=== PATIENT | female | born 2000 | race Caucasian/White ===

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

== ENCOUNTER 2024-10-22 13:33 | Emergency (ER) | payer OTHER, SELFPAY ==
[2024-10-22 13:46] VITALS: BP 116/75; PULSE 85; RESP 16; TEMP 36.4; O2SAT 100
--- NOTE | 2024-10-22 13:46 | ED.URI ---
HPI - URI/Sore Throat General Chief Complaint: Upper Respiratory Infection Stated Complaint: SORE THROAT/DIZZY/OVERHEATED/SHAKY Source: patient Mode of arrival: ambulatory Limitations: no limitations History of Present Illness HPI Narrative: patient is a 24-year-old female presenting with complaints of upper respiratory infection. Symptoms reported include sore throat, headache, congestion, Hot flashes, intermittent dizziness, congestion. Sx began 1 week ago. Denies exposure to COVID, FLU, STREP, PNA. No tx initiated [employer]. No additional complaints. Related Data Home Medications ?Medication ?Instructions ?Recorded ?Confirmed ?Last Taken ?Type fluoxetine 10 mg capsule mg 10/22/24 Unknown History montelukast 10 mg tablet mg 10/22/24 Unknown History norethindrone 1 mg-ethinyl tablet 10/22/24 Unknown History estradiol 20 mcg (21)-iron 75 mg (7) tablet (06/02 (28)) Allergies Allergy/AdvReac Type Severity Reaction Status Date / Time amoxicillin Allergy Rash Verified 10/22/24 13:51 Review of Systems Review of Systems: CONSTITUTIONAL: Denies body aches, fever, chills. EYES: Denies visual changes, redness, or discharge. ENT: Denies otalgia. CARDIOVASCULAR: Denies chest pain, palpitations, or edema. RESPIRATORY: Denies cough or dyspnea. GASTROINTESTINAL: Denies abdominal pain, nausea, vomiting, or diarrhea. GENITOURINARY: Denies dysuria or hematuria. SKIN: Denies rash, itching, or wounds. MUSCULOSKELETAL: Denies back pain, joint pain, or myalgia. NEUROLOGIC: Denies numbness, tingling, or weakness. PSYCH: Denies depression or anxiety. All systems reviewed & are unremarkable except as noted in HPI and below PMFSH Family History Family History Other Family history non-contributory Exam Narrative: GENERAL: Well-appearing, well-nourished, and in no acute distress. HEAD: Normocephalic, atraumatic. EYES: EOMI. No redness or drainage. Conjunctivae normal. ENT: Mucous membranes pink and moist. Nares clear. No rhinorrhea. TMs normal bilaterally. Throat normal. Uvula midline. There is no trismus. There is no evidence of Maik angina. Tonsils are 2+ bilaterally, there is mild erythema. NECK: Normal AROM. Supple. No lymphadenopathy. CHEST: No respiratory distress. Clear to auscultation. HEART: Regular rate and rhythm. No murmur appreciated. Normal peripheral pulses. ABDOMEN: Soft, nontender, nondistended, normal active bowel sounds. MUSCULOSKELETAL: No bony tenderness. EXTREMITIES: Normal range of motion. No edema. SKIN: Warm, dry, no rash. Capillary refill normal. Normal skin turgor. NEURO: No focal deficits. Alert and oriented x3. Gait steady. PSYCH: Normal affect. No signs of depression or anxiety. Course Course Emergency Course: Please be advised this is a medical document. It is intended for [id number] communication. It is written in medical language and may contain unfamiliar abbreviations or verbiage. Medical documents are intended to carry relevant information, facts as evident, and the clinical opinion of the practitioner at the time of the encounter. This dictation may have been done utilizing a voice recognition system. Attempts have been made to correct errors. However, there may be uncorrected grammatical, spelling, and recognition errors present. Level of Care: Express Care Visit Vital Signs Vital signs: Vital Signs Temperature 97.5 F L 10/22/24 13:46 Pulse Rate 85 10/22/24 13:46 Respiratory Rate 16 10/22/24 13:46 Blood Pressure 116/75 10/22/24 13:46 Pulse Oximetry 100 10/22/24 13:46 Temperature 97.5 F L 10/22/24 13:46 Pulse Rate 85 10/22/24 13:46 Respiratory Rate 16 10/22/24 13:46 Blood Pressure 116/75 10/22/24 13:46 Pulse Oximetry 100 10/22/24 13:46 MDM - URI/Sore Throat Differential Diagnosis Differential diagnosis: Likely upper respiratory infection, otitis media, sinusitis, viral infection, influenza and pharyngitis Medical Records Attestation: I reviewed the patient's medical records. Lab Data Attestation: I reviewed the patient's lab results. Labs: Lab Results 10/22/24 10/22/24 Range/Units 14:15 14:21 POC Monoscreen Negative (Negative) POC Grp A Strep Screen Negative (Negative) Discharge Plan Discharge Clinical Impression: Acute upper respiratory infection Patient Disposition: Home Condition: Stable Instructions: Antibiotic Form, Viral Syndrome (ED) Additional Instructions: Go straight to ER should your symptoms become worse or should any new symptoms develop Patient Language: Kitt[place] Prescriptions: New prednisone 20 mg tablet 60 mg PO DAILY Qty: 15 0RF No Action norethindrone-e.estradiol-iron [06/02 (28)] 1 mg-20 mcg (21)/75 mg (7) tablet fluoxetine 10 mg capsule montelukast 10 mg tablet Follow-up/Referrals: Moe,Olimpia [Other] - 10/23/24 Time of Disposition: 14:29
[2024-10-22 14:17] LABS: EDSTREPNEGPOS1 Negative (Negative)
[2024-10-22 14:23] LABS: EDMONONEGPOS Negative (Negative)
== END 2024-10-22 14:40 | disposition home or self-care (01) ==
PROVIDERS: Emergency Provider Registered Nurse
DX: J06.9 Acute upper respiratory infection, unspecified (principal)
CPT/HCPCS: 36416; 86308; 87081; 87880; 99213; G0463

== ENCOUNTER 2025-01-28 13:38 | Emergency (ER) | payer OTHER, SELFPAY ==
[2025-01-28 13:49] VITALS: BP 120/84; PULSE 80; RESP 16; TEMP 36.3; O2SAT 100
--- NOTE | 2025-01-28 13:52 | ED.GENADULT ---
HPI - General Adult General Chief complaint: Upper Respiratory Infection Stated complaint: CONGESTION/COUGH/EAR PRESSURE Source: patient Mode of arrival: ambulatory Limitations: no limitations History of Present Illness HPI narrative: Patient is a 24-year-old female presenting complaint of congestion. Additional symptoms reported include drainage, cough, ear pressure. Symptoms began 1 week ago. 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 Reports the child she nannies has same symptoms and they keep passing it back and forth. No constitutional symptoms. No additional complaints. Related Data Home Medications ?Medication ?Instructions ?Recorded ?Confirmed ?Last Taken ?Type fluoxetine 10 mg capsule 10 mg PO QPM 10/22/24 01/28/25 Unknown History montelukast 10 mg tablet 10 mg PO QPM 10/22/24 01/28/25 Unknown History norethindrone 1 mg-ethinyl 1 tablet PO DAILY 10/22/24 01/28/25 Unknown History estradiol 20 mcg (21)-iron 75 mg (7) tablet (06/02 (28)) Allergies Allergy/AdvReac Type Severity Reaction Status Date / Time amoxicillin Allergy Rash Verified 01/28/25 13:44 Review of Systems Review of Systems: CONSTITUTIONAL: Denies body aches, fever, chills, or sweats. EYES: Denies visual changes, redness, or discharge. ENT: Reports PND, congestion, ear pressure, denies sore throat CARDIOVASCULAR: Denies chest pain, palpitations, or edema. RESPIRATORY: Denies cough or dyspnea. GASTROINTESTINAL: Denies abdominal pain, nausea, vomiting, or diarrhea. GENITOURINARY: Denies dysuria or hematuria. SKIN: Denies rash, itching, or wounds. MUSCULOSKELETAL: Denies back pain, joint pain, or myalgia. NEUROLOGIC: Denies headache, numbness, tingling, or weakness. PSYCH: Denies depression or anxiety. All systems reviewed & are unremarkable except as noted in HPI and below (HPI) [facility] Family History Family History Other Family history non-contributory Exam Narrative: GENERAL: Well-appearing, well-nourished, and in no acute distress. HEAD: Normocephalic, atraumatic. EYES: EOMI. No redness or drainage. Conjunctivae normal. ENT: Mucous membranes pink and moist. Nares clear. No rhinorrhea. TMs normal bilaterally. Throat normal. Uvula midline.Sinuses are NonTTP NECK: Normal AROM. Supple. No lymphadenopathy. CHEST: No respiratory distress. Clear to auscultation. HEART: Regular rate and rhythm. No murmur appreciated. Normal peripheral pulses. EXTREMITIES: Normal range of motion. SKIN: Warm, dry, no rash. Capillary refill normal. Normal skin turgor. NEURO: No focal deficits. Alert and oriented x3. Gait steady. PSYCH: Normal affect. No signs of depression or anxiety. Course Course Level of Care: Express Care Visit Vital Signs Vital signs: Vital Signs Temperature 97.4 F L 01/28/25 13:49 Pulse Rate 80 01/28/25 13:49 Respiratory Rate 16 01/28/25 13:49 Blood Pressure 120/84 01/28/25 13:49 Pulse Oximetry 100 01/28/25 13:49 Temperature 97.4 F L 01/28/25 13:49 Pulse Rate 80 01/28/25 13:49 Respiratory Rate 16 01/28/25 13:49 Blood Pressure 120/84 01/28/25 13:49 Pulse Oximetry 100 01/28/25 13:49 Medical Decision Making Vital Signs Vital Signs: Vital Signs Temperature 97.4 F L 01/28/25 13:49 Pulse Rate 80 01/28/25 13:49 Respiratory Rate 16 01/28/25 13:49 Blood Pressure 120/84 01/28/25 13:49 Pulse Oximetry 100 01/28/25 13:49 Temperature 97.4 F L 01/28/25 13:49 Pulse Rate 80 01/28/25 13:49 Respiratory Rate 16 01/28/25 13:49 Blood Pressure 120/84 01/28/25 13:49 Pulse Oximetry 100 01/28/25 13:49 Lab Data Lab results reviewed: Yes I reviewed the patient's lab results. Labs: Lab Results 01/28/25 Range/Units 14:05 POC Influenza A Ag Negative (Negative) POC Influenza B Ag Negative (Negative) POC SARS CoV-2 Ag Negative (Negative) Discharge Plan Discharge Clinical Impression: Upper respiratory infection Qualifiers: URI type: acute nasopharyngitis (common cold) Qualified Code(s): J00 - Acute nasopharyngitis [common cold] Patient Disposition: Home Condition: Stable Instructions: Viral Syndrome (ED) Additional Instructions: Go straight to ER should your symptoms become worse or should any new symptoms develop Patient Language: Citizen Of [place] Prescriptions: No Action norethindrone-e.estradiol-iron [06/02 (28)] 1 mg-20 mcg (21)/75 mg (7) tablet 1 tablet PO DAILY fluoxetine 10 mg capsule 10 mg PO QPM montelukast 10 mg tablet 10 mg PO QPM Follow-up/Referrals: Moe,Olimpia [Other] - 01/29/25 Time of Disposition: 14:10
[2025-01-28 14:08] LABS: EDCOVIDSCREEN Negative (Negative); EDINFLUASCREEN Negative (Negative); EDINFLUBSCREEN Negative (Negative)
== END 2025-01-28 14:14 | disposition home or self-care (01) ==
PROVIDERS: Emergency Provider Registered Nurse
DX: J00 Acute nasopharyngitis [common cold] (principal); Z20.822 Contact with and (suspected) exposure to COVID-19
CPT/HCPCS: 87426; 87804; 99212; G0463